=== PATIENT | female | born 1995 | race Caucasian/White ===

== ENCOUNTER 2017-01-29 13:19 | Emergency (ER) | payer BC ==
[~2017-01-29] VITALS: Ht 170.2 cm; Wt 68.0 kg
[2017-01-29 13:33] VITALS: BP 104/69
[2017-01-29] MEDS ORDERED: NKM (13:33)
--- NOTE | 2017-01-29 13:49 | Emergency Room Report ---
History of Present Illness General Chief Complaint: Eye Problems Source: Patient Present Illness HPI 21 YO Female presents to the ED c/o left eye redness, yellow discharge, and increased lacrimation x 1 day. denies trauma, denies pain, or changes in vision. Patient denies nausea, vomiting, fevers, chills, trauma to the eye, recent illness or ill contacts. Patient denies photophobia, foreign body sensation, scratching sensation, floaters, flashing lights or contact lens usage. Denies CP, Palpitations, LOC, AMS, dizziness, Changes in Vision, Sensation, paresthesias, or a sudden severe headache. Allergies: Coded Allergies: No Known Allergies (Unverified , 01/29/17) Patient History Past Medical History: see triage record Past Surgical History: none Pertinent Family History: none Last Menstrual Period: 01/12/2017 Now: No : 0 Para: 0 Immunizations: UTD Reviewed Nursing Documentation: PMH: Agreed, PSxH: Agreed Nursing Documentation-PMH Past Medical History: No Stated History Review of Systems All Other Systems: negative except mentioned in HPI Physical Exam Vital Signs Date Time Temp Pulse Resp B/P Pulse Ox O2 Delivery O2 Flow Rate FiO2 01/29/17 13:29 98.1 85 16 104/69 99 Room Air Sp02 EP Interpretation: reviewed, normal General Appearance: no apparent distress, alert, GCS 15, non-toxic Head: normocephalic, atraumatic Eyes: right eye other - erythema, and moderate yellow d/c noted in the right eye, no evidence of infestation, EOMI, no photophobia, PEERL, no swelling of the lids, no fixed mid-dilated pupil, corneal haze or limbus injection, bilateral eye PERRL, bilateral eye normal inspection ENT: hearing grossly normal, normal pharynx, no angioedema, normal voice Neck: full range of motion Respiratory: lungs clear, normal breath sounds, speaking full sentences Cardiovascular #1: regular rate, rhythm, no edema Musculoskeletal: back normal, gait/station normal, normal range of motion, non- tender Neurologic: alert, oriented x3, responsive, motor strength/tone normal, sensory intact, speech normal Psychiatric: judgement/insight normal, memory normal, mood/affect normal Skin: normal color, no rash, warm/dry, well hydrated Medical Decision Making PA Attestation Dr. Navarro is my supervising Physician whom patient management has been discussed with. Diagnostic Impression: Primary Impression: Bacterial conjunctivitis of right eye ER Course Pt. presents to the ED c/o : left eye redness, discharge, and increased lacrimation x 1 day. denies trauma, denies pain, or changes in vision. - Does not use Contact lenses. Ddx considered but are not limited to: corneal abrasion, acute glaucoma, globe rupture, FB, Corneal Ulcer, conjunctivitis. Iridis, orbital cellulitis,keratitis , sinusitis Vital signs: are WNL, pt. is afebrile H&PE are most consistent with: bacterial conjunctivitis no symptoms or HPI to suggest corneal abrasions, or glaucoma over conjunctivitis. ORDERS: none at this time. ED INTERVENTIONS: none at this time. - D/W pt. eye hygiene, and to follow up with PCP. d/w pt. that conjunctivitis is contagious, and to change pillow cases nightly to reduce risk of infecting the other eye. d/w pt. to return to ED with any worsening or new symptoms. DISCHARGE: At this time pt. is stable for d/c to home. Will provide printed patient care instructions, and any necessary prescriptions. Care plan and follow up instructions have been discussed with the patient prior to discharge. Last Vital Signs Date Time Temp Pulse Resp B/P Pulse Ox O2 Delivery O2 Flow Rate FiO2 01/29/17 13:29 98.1 85 16 104/69 99 Room Air Disposition: HOME, SELF-CARE Condition: Stable Scripts Ofloxacin (OCUFLOX) 5 Ml Drops 3 DROP OP BID for 5 Days, #5 ML Prov: Michelle Killian 01/29/17 Patient Instructions: Bacterial Conjunctivitis, [id number] Additional Instructions: Take medications as directed. Follow up with PCP in 3-5 days Return sooner to ED if new symptoms occur, or current symptoms become worse. - Please note that this Emergency Department Report was dictated using [employer] die pol[employer] technology software, occasionally this can lead to erroneous entry secondary to interpretation by the dictation equipment. Michelle Killian January 29, 2017 13:49
[2017-01-29] MEDS ORDERED: OCUFLOX5 ML OP (13:51)
[2017-01-29 14:03] VITALS: BP 104/69
== END 2017-01-29 14:03 | disposition home or self-care (01) ==
LOC: EMR 13:40
DX: H10.89 Other conjunctivitis (principal)
CPT/HCPCS: 99283